=== PATIENT | female | born 1950 | race Caucasian/White ===

== ENCOUNTER 2022-10-24 18:45 | Inpatient (IN) | payer MEDICARE, OTHER ==
[~2022-10-24] VITALS: Ht 167.6 cm; Wt 85.7 kg
--- NOTE | 2022-10-24 20:30 | NUR ---
Dr. Eduardo evaluated patient at bedside. MSE in progress.
[2022-10-24 20:47] LABS: HEMATOCRIT 46.2 % (31.2-41.9); MEAN CORPUSCULAR HEMOGLOBIN 28.9 uug (24.7-32.8); MEAN CORPUSCULAR VOLUME 86.9 fL (75.5-95.3); PLATELET COUNT (AUTO) 404 K/uL (179-408)
[2022-10-24 20:56] LABS: CARBON DIOXIDE 26 mmol/L (21-32); CHLORIDE 102 mmol/L (98-107); CREATININE 0.6 mg/dL (0.6-1.3); GLUCOSE 212 mg/dL (74-106); UREA NITROGEN, BLOOD 16 mg/dL (7-18)
[2022-10-24 20:59] LABS: ETHANOL < 3 MG/DL (0-0)
[2022-10-24 21:01] LABS: ALANINE AMINOTRANSFERASE 27 U/L (14-59); ALKALINE PHOSPHATASE 108 U/L (50-136); ASPARTATE AMINOTRANSFERASE 11 U/L (15-37); BILIRUBIN,DIRECT 0.1 mg/dL (0.0-0.2); BILIRUBIN,TOTAL 0.6 mg/dL (0.2-1.0); TOTAL PROTEIN, SERUM 7.9 g/dL (6.4-8.2)
[2022-10-24 21:04] LABS: ACETAMINOPHEN < 2.0 ug/mL (10-30)
[2022-10-24 21:09] LABS: THYROID STIMULATING HORMONE 3.036 mIU/mL (0.358-3.740)
[2022-10-24 21:43] LABS: *BILIRUBIN,URIN NEGATIVE (NEGATIVE); *BLOOD, URINE NEGATIVE (NEGATIVE); *CLARITY,URINE CLEAR (CLEAR); *COLOR,URINE YELLOW (YELLOW); *KETONES,URINE 1+ (NEGATIVE); *UROBILINOGEN,URINE 0.2 E.U./dl (NORMAL); LEUKOCYTE ESTERASE ,URINE NEGATIVE (NEGATIVE); NITRITE, URINE NEGATIVE (NEGATIVE); PH,URINE 5.5 (5.0-8.0)
[2022-10-24 21:47] LABS: *AMPHETAMINE, URINE NEGATIVE (NEGATIVE); *CANNABINOID, URINE NEGATIVE (NEGATIVE); *COCCAINE, URINE NEGATIVE (NEGATIVE); *PHENCYCLIDINE SCREEN,URINE NEGATIVE (NEGATIVE)
[2022-10-24 21:57] LABS: UGLUCOSE 3+ (NEGATIVE)
--- NOTE | 2022-10-25 01:24 | NUR ---
[place] Phuong [place] [facility] [place]
[2022-10-25] MEDS ORDERED: ACET-73 PO (01:59)
[2022-10-25] MEDS ORDERED: DOCU250C14 PO (02:02)
[2022-10-25] MEDS ORDERED: LORA2TAB95 PO (02:04)
[2022-10-25] MEDS ORDERED: MAGN400O6 PO (02:06)
[2022-10-25] MEDS ORDERED: MAG30ORA GT (02:07)
[2022-10-25] MEDS ORDERED: ACETAMINOPHEN ES 500 MG TABLET- SA PATIENTS-PAIN ONLY PO PRN (02:30)
[2022-10-25] MEDS ORDERED: DOCUSATE SODIUM 250 MG CAPSULE PO PRN (02:30)
[2022-10-25] MEDS ORDERED: MAGNESIUM HYDROXIDE 30 ML LIQUID UDC PO PRN ×2 (02:30→05:45)
[2022-10-25] MEDS ORDERED: MAG HYDROX/AL HYDROX/SIMETH 30 ML LIQUID UDC PO PRN ×2 (02:30→05:45)
--- NOTE | 2022-10-25 04:11 | NUR ---
Patient taken to MHU Room 140-B via wheelchair with personal belongings. Patient in stable condition, no signs of distress. Phuong BRYANT aware of patients arrival.
[2022-10-25] MEDS ORDERED: ARIP15TA3 PO (05:28)
[2022-10-25] MEDS ORDERED: TEMAZEPAM 7.5 MG CAPSULE PO PRN (05:45)
[2022-10-25] MEDS ORDERED: CLONAZEPAM 0.5 MG TABLET PO PRN (05:45)
[2022-10-25] MEDS ORDERED: BLOOD SUGAR DIAGNOSTIC 1 EACH STRIP VI ONE (05:45)
[2022-10-25] MEDS ORDERED: ACETAMINOPHEN 325 MG TABLET PO PRN (05:45)
--- NOTE | 2022-10-25 07:00 | NUR ---
at approx 0400, admitted 72 years old female to [facility] on a 5150 for GD. upon admission pt A/O x 3 she is cooperative with admission process. Face to face assessment was done, patient was advised of her hold and she was given his advisement as well as her booklet of patient's right when in [facility]. we will continue with Q15 min checks
[2022-10-25 07:30] VITALS: BP 122/82
[2022-10-25] MEDS ORDERED: DEXTROSE 50% 50 ML DISP.SYRIN IV PRN (11:45)
--- NOTE | 2022-10-25 14:07 | NUR ---
Patient is DNR but POLST was not eligible, [facility] was called twice today, and document was requested. Anne-Marie [place] [facility] [place][phone]).
--- NOTE | 2022-10-25 14:58 | NUR ---
Received patient awake in the hallway. A/O X 2 to person. Patient is preoccupied, anxious, labile, withdrawn, approachable. Patient ambulates with walker, unsteady gait, continent. Active listening provided. Fall and safety precautions implemented.
--- NOTE | 2022-10-25 16:15 | NUR ---
Cortney from [facility] faxed POLST documentation, but it is still not eligible due to pink color the document presents. POLST was received at U as dark gutierrez and can not be read it.
[2022-10-25] MEDS: BLOOD SUGAR DIAGNOSTIC 1 EACH STRIP VI SCH ×2 (16:30→20:59)
--- NOTE | 2022-10-25 16:41 | NUR ---
Patient refuses Accucheck and states "I want to continue a natural treatment that you don't do anything, just let it be, at God's will".
[2022-10-25] MEDS: OLANZAPINE ZYDIS 5 MG TAB.RAPDIS PO SCH ×2 (20:59→21:00)
[2022-10-25 21:16] VITALS: BP 93/55
--- NOTE | 2022-10-26 02:07 | NUR ---
GPS NOTES: Patient is disorganized, unkempt and delusional. Non-compliant with medications d/t delusional thoughts. Patient not holding any meaningful conversations. Responding to internal stimuli. Denies SI. Educate on the importance of med compliance, still refused. She wanders around the unit. Refused hygiene care. Safety implemented.
[2022-10-26] MEDS: BLOOD SUGAR DIAGNOSTIC 1 EACH STRIP VI SCH ×4 (06:49→20:12)
--- NOTE | 2022-10-26 11:29 | NUR ---
RITESH Initial Discharge Note: Pt currently resides at [facility] located at [address] [place] [address] ([phone]). It is uncertain at this time if pt will return to [facility]. Pt does not appear to have any family contact at this time. RITESH will continue to work with pt, family and MD to ensure a safe and proper discharge plan.
--- NOTE | 2022-10-26 15:40 | NUR ---
Received pt in room sitting quietly on bed. Pt is ambulatory self care, Pt is A/O X2. Pt paces up and down the hallway talking to self. Pt has unkept appearance. Pt refuses nursing care and refuses medications. Pt is Diabetic but refused Accu checks stating "we are not doing that.Continue to monitor for safety, Continue with treatment plan.
[2022-10-26] MEDS: OLANZAPINE ZYDIS 5 MG TAB.RAPDIS PO SCH (20:12)
--- NOTE | 2022-10-26 23:19 | NUR ---
Patient refused blood glucose monitoring and all PO medications. The patient is delusional and believes " God and I are one. God told me not to take your pills and I am not Diabetic. Give me apple juice." Many tries to encourage and educate this patient about diabetes and medication compliance have been unsuccessful so far this shift. Safety Stratiges are in place. Continuing to monitor behavior and compliance.
[2022-10-27] MEDS: BLOOD SUGAR DIAGNOSTIC 1 EACH STRIP VI SCH ×4 (06:32→20:43)
[2022-10-27] MEDS: METFORMIN HCL 500 MG TABLET PO SCH ×2 (13:36→17:37)
[2022-10-27 16:00] VITALS: BP 127/40
--- NOTE | 2022-10-27 16:00 | NUR ---
Patient is confused, disorganized, delusional, hyper sabianism, refusing most of medications. Patient is A/O X 2 to person. Patient requires minimal assistance with ADL, ambulates without assistance, continent. Patient is encourage to verbalize concerns. Fall and safety precautions implemented.
--- NOTE | 2022-10-27 18:37 | NUR ---
Patient blood glucose is 260, but refuses insulin. Patient states "I just take the pills for diabetes".
[2022-10-27] MEDS: OLANZAPINE ZYDIS 5 MG TAB.RAPDIS PO SCH (20:43)
--- NOTE | 2022-10-28 04:56 | NUR ---
GPS NOTES: BS 245, refused insulin. Educated on importance of med compliance, still refused. Patient is disorganized, non compliance with medications. She believes medication will make her blind. She sleeping well during shift.
[2022-10-28] MEDS: BLOOD SUGAR DIAGNOSTIC 1 EACH STRIP VI SCH ×4 (06:34→20:07)
[2022-10-28 07:57] VITALS: BP 153/82
[2022-10-28] MEDS: METFORMIN HCL 500 MG TABLET PO SCH ×2 (08:09→17:19)
[2022-10-28] MEDS: GLIMEPIRIDE 2 MG TABLET PO SCH (08:09)
--- NOTE | 2022-10-28 15:30 | NUR ---
Received Pt in bed Talking to self.pt is A/O X2.Pt is ambulatory. Pt paces up and down the hallway.Pt took her PO medications for Diabetes. Pt did not refuse the dinner Accucheck. Continue to monitor for safety, Continue with treatment plan.
[2022-10-28 16:19] VITALS: BP 106/62
[2022-10-28] MEDS: INSULIN REGULAR, HUMAN 300 UNIT/3 ML VIAL SQ PRN (17:15)
[2022-10-28 20:00] VITALS: BP 135/61
[2022-10-28] MEDS: OLANZAPINE ZYDIS 5 MG TAB.RAPDIS PO SCH (20:07)
--- NOTE | 2022-10-29 06:49 | NUR ---
GPS NOTES: Remains non-compliant with medications d/t delusions of going blind. Educated pt. however not understanding of the concepts. She continues to respond to internal stimuli, she is hyper taoist, believing Robert is talking to her. She slept most of the shift. No distress noted. safety strategies are in placed.
[2022-10-29] MEDS: BLOOD SUGAR DIAGNOSTIC 1 EACH STRIP VI SCH ×4 (06:53→20:19)
[2022-10-29 08:13] VITALS: BP 152/57
[2022-10-29] MEDS: METFORMIN HCL 500 MG TABLET PO SCH ×2 (08:33→18:00)
[2022-10-29] MEDS: GLIMEPIRIDE 2 MG TABLET PO SCH (08:33)
[2022-10-29 16:24] VITALS: BP 138/63
[2022-10-29] MEDS: INSULIN REGULAR, HUMAN 300 UNIT/3 ML VIAL SQ PRN ×2 (16:38→20:58)
--- NOTE | 2022-10-29 18:08 | NUR ---
Received Patient is confused, disorganized, delusional, refusing most of medications waiting for Riese hearing . Patient is A/O X 2 to person. Patient requires minimal assistance with ADL, ambulates without assistance, continent. glucose monitoring with sliding scale coverage. Fall and safety precautions implemented.
[2022-10-29 20:07] VITALS: BP 102/56
[2022-10-29] MEDS: OLANZAPINE ZYDIS 5 MG TAB.RAPDIS PO SCH (20:18)
[2022-10-30] MEDS: BLOOD SUGAR DIAGNOSTIC 1 EACH STRIP VI SCH ×4 (06:42→20:26)
[2022-10-30 07:50] VITALS: BP 160/81
[2022-10-30] MEDS: GLIMEPIRIDE 2 MG TABLET PO SCH (08:43)
[2022-10-30] MEDS: METFORMIN HCL 500 MG TABLET PO SCH ×2 (08:44→16:34)
[2022-10-30] MEDS: INSULIN REGULAR, HUMAN 300 UNIT/3 ML VIAL SQ PRN (08:58)
[2022-10-30 16:38] VITALS: BP 102/44
[2022-10-30 19:52] VITALS: BP 126/50
--- NOTE | 2022-10-31 06:36 | NUR ---
Patient still refuses to receive insulin coverage per sliding scale, even with repeated education. States she "only will take oral medication" for her elevated blood sugar findings.
[2022-10-31] MEDS: BLOOD SUGAR DIAGNOSTIC 1 EACH STRIP VI SCH ×4 (07:30→20:33)
--- NOTE | 2022-10-31 08:00 | NUR ---
Pt received from outgoing nurse. PT AAOX2-3. All meds given. No signs of shortness of breath noted. Pt denies any pain. PT ambulates in room. Will continue to monitor
[2022-10-31 08:06] VITALS: BP 145/81
[2022-10-31] MEDS: GLIMEPIRIDE 2 MG TABLET PO SCH (08:29)
[2022-10-31] MEDS: METFORMIN HCL 500 MG TABLET PO SCH ×2 (08:29→17:04)
[2022-10-31] MEDS: OLANZAPINE ZYDIS 5 MG TAB.RAPDIS PO SCH ×2 (08:29→17:05)
[2022-10-31 16:09] VITALS: BP 128/89
--- NOTE | 2022-10-31 16:39 | NUR ---
14 days PC hearing done ,held for Gravely disabled.
[2022-10-31 20:00] VITALS: BP 132/82
--- NOTE | 2022-11-01 03:37 | NUR ---
Pt still refusing to receive insulin injections per sliding scale. Still paranoid and suspicious at times. Compliant with PO meds. Interacts when spoken to accordingly. Will continue to monitor.
[2022-11-01] MEDS: BLOOD SUGAR DIAGNOSTIC 1 EACH STRIP VI SCH ×2 (06:42→12:07)
[2022-11-01] MEDS: INSULIN REGULAR, HUMAN 300 UNIT/3 ML VIAL SQ PRN ×2 (07:33→12:11)
[2022-11-01 07:51] VITALS: BP 137/62
[2022-11-01] MEDS: METFORMIN HCL 500 MG TABLET PO SCH (08:18)
[2022-11-01] MEDS: OLANZAPINE ZYDIS 5 MG TAB.RAPDIS PO SCH (08:19)
[2022-11-01] MEDS: GLIMEPIRIDE 2 MG TABLET PO SCH (08:24)
[2022-11-01] MEDS ORDERED: DOCUSATE SODIUM 250 MG CAPSULE PO PRN (10:32)
--- NOTE | 2022-11-01 12:18 | NUR ---
RITESH Discharge Note: Pt will be discharged to [facility] located at [address] [place] [phone] ([phone]) via ambulance transportation at 2PM. RITESH spoke with [place] sun [phone] at the facility who states they are ready to accept the patient today. Pt is aware and agreeable with discharge plan. Pt does not have any family contact. Pt is alert and oriented x3, is unable to plan for self-care at this time. However, pt is willing to accept care at SNF. Pt denies any suicidal or homicidal ideation. Pt will follow-up at the facility with Psychiatrist, Dr. Smith and Produce Inspector, Dr. Benavides. Pt presents with calm mood and congruent affect. PHARMACY: [facility] ([phone]) [address] [place] [address].
--- NOTE | 2022-11-01 14:00 | NUR ---
Received Pt in room sleeping.pt is A/O X2.Pt is ambulatory. Pt takes PO medication but refuses Insulin. Pt is depress and confused at times.Pt needs minimal help With ADLs. continue to monitor for safety , continue with care plan.
--- NOTE | 2022-11-01 14:35 | NUR ---
Discharge pt to [facility]. Pt left on [facility] accompanied by EMT.Denies pain or discomfort. Pt is able to make all needs known. Denies SI/HI no behavioral issues noted.Pt discharged with all belongings and medications.No acute distress.
== END 2022-11-01 14:30 | DRG 885 ==
LOC: ER 18:52 → GPS 10-25 01:19
PROVIDERS: ADMIT Psychiatry & Neurology Psychiatry; ATTEND Nurse Practitioner Family
DX: F29 Unspecified psychosis not due to a substance or known physiological condition (principal); E11.65 Type 2 diabetes mellitus with hyperglycemia; F20.9 Schizophrenia, unspecified; Z91.14 Patient's other noncompliance with medication regimen; I10 Essential (primary) hypertension; H54.7 Unspecified visual loss; Z87.891 Personal history of nicotine dependence; E11.51 Type 2 diabetes mellitus with diabetic peripheral angiopathy without gangrene; E78.5 Hyperlipidemia, unspecified; G20 Parkinson's disease; Z20.822 Contact with and (suspected) exposure to COVID-19; Z73.6 Limitation of activities due to disability; F32.A Depression, unspecified; Z79.4 Long term (current) use of insulin; Z79.84 Long term (current) use of oral hypoglycemic drugs
CPT/HCPCS: 36415; 84443; 85025; 93005; A4663; G0480; J1815

== ENCOUNTER 2022-12-25 22:57 | Inpatient (IN) | payer MEDICARE, OTHER ==
[~2022-12-25] VITALS: Ht 162.6 cm; Wt 90.7 kg
[~2022-12-25 22:57] MED LIST: ACET-73 PO; DOCU250C14 PO; MAG30ORA GT; MAGN400O6 PO
[2022-12-25 23:25] LABS: HEMATOCRIT 40.6 % (31.2-41.9); MEAN CORPUSCULAR HEMOGLOBIN 29.4 uug (24.7-32.8); MEAN CORPUSCULAR VOLUME 87.2 fL (75.5-95.3); PLATELET COUNT (AUTO) 370 K/uL (179-408)
--- NOTE | 2022-12-25 23:29 | NUR ---
Patient assigned to [address] [place] [address]
[2022-12-25 23:35] LABS: CARBON DIOXIDE 27 mmol/L (21-32); CHLORIDE 102 mmol/L (98-107); CREATININE 0.7 mg/dL (0.6-1.3); POTASSIUM 4.1 mmol/L (3.5-5.1); UREA NITROGEN, BLOOD 23 mg/dL (7-18)
--- NOTE | 2022-12-25 23:39 | NUR ---
BIB AMBULANCE, PLACED INTO ROOM #4-A, INFORMED OF PLAN OF CARE, AWAITING MD EXAM. NO S/S OF ANY DISTRESS NOTED, COVID AND MRSA SWAB DONE AND SENT TO LAB. SIDE RAILS UP WILL CONTINUE TO MONITOR.
[2022-12-25 23:40] LABS: GLUCOSE 340 mg/dL (74-106)
[2022-12-25 23:41] LABS: ALANINE AMINOTRANSFERASE 27 U/L (14-59); ALKALINE PHOSPHATASE 120 U/L (50-136); ASPARTATE AMINOTRANSFERASE < 5 U/L (15-37); BILIRUBIN,DIRECT 0.1 mg/dL (0.0-0.2); BILIRUBIN,TOTAL 0.3 mg/dL (0.2-1.0); TOTAL PROTEIN, SERUM 7.4 g/dL (6.4-8.2)
[2022-12-25 23:43] LABS: ACETAMINOPHEN < 2.0 ug/mL (10-30)
[2022-12-25 23:46] LABS: ETHANOL < 3 MG/DL (0-0)
[2022-12-25 23:48] LABS: THYROID STIMULATING HORMONE 4.364 mIU/mL (0.358-3.740)
--- NOTE | 2022-12-25 23:57 | NUR ---
Patient has been medically cleared by Dr Eduardo
[2022-12-26] MEDS ORDERED: NA P133E RC (00:21)
[2022-12-26] MEDS ORDERED: BISA10SU61 RC (00:21)
[2022-12-26] MEDS ORDERED: METF-442 PO (00:21)
[2022-12-26] MEDS ORDERED: OLAN5TAB70 PO (00:21)
[2022-12-26] MEDS ORDERED: GLIM2TAB31 PO (00:21)
--- NOTE | 2022-12-26 00:48 | NUR ---
LATE ENTRY: Report was called to Sacha @0011, awaiting COVID results. Patient is rest without any c/o at this time.
--- NOTE | 2022-12-26 00:49 | NUR ---
Patient continues to rest no s/s of any distress or discomfort, still waiting for COVID results.
[2022-12-26 02:01] VITALS: BP 175/67
[2022-12-26] MEDS ORDERED: MAGNESIUM HYDROXIDE 30 ML LIQUID UDC PO PRN (03:00)
[2022-12-26] MEDS ORDERED: BLOOD SUGAR DIAGNOSTIC 1 EACH STRIP VI ONE (03:00)
[2022-12-26] MEDS ORDERED: CLONAZEPAM 0.5 MG TABLET PO PRN (03:00)
[2022-12-26] MEDS ORDERED: TEMAZEPAM 7.5 MG CAPSULE PO PRN (03:00)
[2022-12-26] MEDS ORDERED: MAG HYDROX/AL HYDROX/SIMETH 30 ML LIQUID UDC PO PRN (03:00)
[2022-12-26] MEDS ORDERED: ACETAMINOPHEN 325 MG TABLET PO PRN (03:00)
--- NOTE | 2022-12-26 05:22 | NUR ---
Nursing Admission Note: Received 72 y/o women on a 5150 hold, brought in via ER staff on . Pt resides at [facility] in [place], [place]. Report states patient refused to receive her medications and care for 3+ days. She became increasingly difficult to care for, and started to threaten staff nurses and other residents of the facility. She also started throwing things at them. Upon F2F assessment, pt was AOx3, calm, compliant, and well kept. She is self-ambulatory/self-care. Patient was given her advisement, patient's rights, and placed into her Patient's Handbook. She denied being aggressive toward her staff at the [facility]. She stated that they were forcing her to do things such as bathing, BS checks, and taking meds. Here in MHU, she will be under the care of Dr. Joaquin, and Dr. Mao.
[2022-12-26 08:00] VITALS: BP 151/76
--- NOTE | 2022-12-26 10:10 | NUR ---
Initial Discharge Note: Patient currently resides at [address] and patient is open to going back at discharge. SW will continue to work with patient and MD to ensure a safe and proper discharge plan.
--- NOTE | 2022-12-26 10:23 | NUR ---
Firearms Report: Insulation Cupola Charger completed and submitted a DOJ firearms report for 5150 grave disability and danger to others certifications. A copy of report has been placed in patient chart.
--- NOTE | 2022-12-26 14:35 | NUR ---
GPS: Nursing Notes: Destructive Behavior To Others: Patient is awake and responding to her name, cooperative with nursing care, isolative and withdrawn in her room. no interactions with peers, A/Ox3, denies SI/HI, unable to formulate a viable plan for self care, stated "I was not taking medication because my vision was getting blurred.." encourage to participate in therapeutic groups, but refusing to participate, continue to monitor for safety, continue with treatment plan.
[2022-12-26 16:00] VITALS: BP 178/85
[2022-12-26 19:52] VITALS: BP 180/90
--- NOTE | 2022-12-27 03:03 | NUR ---
Patient is AOx3. Calm, compliant, yet with withdrawn and isolated. Pt stayed in her room intermittently sitting in her chair. Pt still refused to take any prn medications this shift. She is self-ambulatory and self-care. Ate 100% of snacks given this shift. This nurse reminded of the importance of taking medications, especially to help manage her daily elevated BP level. Also re-educated of the importance of not overeating and to monitor what, when, and how much food/drinks she is consuming daily to help manage her daily elevated BS level. Pt verbalized understanding. Pt denied SI/HI. Contracted for safety.
[2022-12-27 07:30] VITALS: BP 145/83
[2022-12-27 08:27] LABS: BILIRUBIN,TOTAL 0.4 mg/dL (0.2-1.0); CREATININE 0.7 mg/dL (0.6-1.3); POTASSIUM 4.3 mmol/L (3.5-5.1)
[2022-12-27] MEDS ORDERED: MAGNESIUM HYDROXIDE 30 ML LIQUID UDC PO PRN (10:15)
[2022-12-27] MEDS ORDERED: DOCUSATE SODIUM 250 MG CAPSULE PO PRN (10:15)
[2022-12-27] MEDS ORDERED: FLEET ENEMA 133 ML BOTTLE RC PRN (10:15)
[2022-12-27] MEDS ORDERED: ACETAMINOPHEN ES 500 MG TABLET- SA PATIENTS-PAIN ONLY PO PRN (10:15)
[2022-12-27] MEDS ORDERED: BISACODYL 10 MG SUPP.RECT RC PRN (10:15)
[2022-12-27] MEDS: OLANZAPINE ZYDIS 5 MG TAB.RAPDIS PO SCH ×2 (10:31→17:40)
[2022-12-27] MEDS: GLIMEPIRIDE 2 MG TABLET PO SCH (11:07)
[2022-12-27] MEDS ORDERED: DEXTROSE 50% 50 ML DISP.SYRIN IV PRN (11:30)
[2022-12-27] MEDS: AMLODIPINE 10 MG TABLET PO SCH (12:01)
[2022-12-27] MEDS: BLOOD SUGAR DIAGNOSTIC 1 EACH STRIP VI SCH ×3 (12:11→20:10)
[2022-12-27] MEDS: INSULIN REGULAR, HUMAN 300 UNIT/3 ML VIAL SQ PRN ×2 (12:26→20:11)
[2022-12-27] MEDS: METFORMIN HCL 500 MG TABLET PO SCH (17:40)
--- NOTE | 2022-12-27 19:01 | NUR ---
Pt is depressed , Isolative, withdrawn and selective with medications. she will take her PO medications but refuse her Regular insulin and at times her blood sugar check stating "i will take only pills no needles" encourage pt to ventilate feelings and to participate in group activities. Reassurance provided .continue to monitor for safety, continue with treatment plan.
[2022-12-27 20:00] VITALS: BP 112/52
[2022-12-27] MEDS: ATORVASTATIN 10 MG TABLET PO SCH (20:22)
[2022-12-28] MEDS: BLOOD SUGAR DIAGNOSTIC 1 EACH STRIP VI SCH ×4 (06:20→20:24)
--- NOTE | 2022-12-28 06:52 | NUR ---
GPS: Pt.slept 9 hrs.last night. B.S. at this time is 279mg/dl. Encouraged to allow staff to administer insulin on her per sliding scale but pt.said "No".Stated " God said " No to needles". Re-directed but continues to insist on what she believes in. Endorsed to incoming nurse. Safety emphasized.
[2022-12-28 07:30] VITALS: BP 163/72
[2022-12-28] MEDS: AMLODIPINE 10 MG TABLET PO SCH (09:34)
[2022-12-28] MEDS: METFORMIN HCL 500 MG TABLET PO SCH ×2 (09:34→16:41)
[2022-12-28] MEDS: GLIMEPIRIDE 2 MG TABLET PO SCH (09:35)
[2022-12-28] MEDS: OLANZAPINE ZYDIS 5 MG TAB.RAPDIS PO SCH ×2 (09:35→16:43)
--- NOTE | 2022-12-28 14:20 | NUR ---
Gps/Base Engineer- Had been in and out of her room, mostly in her bed. Had been compliant with her routine meds.daquan noted, claimed she does not needs to drink water ever from [place]/ claimed instructions received from Lucio , and she's just following .
--- NOTE | 2022-12-28 17:37 | NUR ---
Gps/Nursery Laborer- Noted elevated blood sugars, patient refusing sliding scale coverage .
[2022-12-28 20:00] VITALS: BP 131/68
[2022-12-28] MEDS: ATORVASTATIN 10 MG TABLET PO SCH (20:22)
[2022-12-29] MEDS: BLOOD SUGAR DIAGNOSTIC 1 EACH STRIP VI SCH ×4 (06:29→20:33)
[2022-12-29 07:51] VITALS: BP 129/58
[2022-12-29] MEDS: AMLODIPINE 10 MG TABLET PO SCH (08:53)
[2022-12-29] MEDS: OLANZAPINE ZYDIS 5 MG TAB.RAPDIS PO SCH ×2 (08:53→17:55)
[2022-12-29] MEDS: METFORMIN HCL 500 MG TABLET PO SCH (08:54)
[2022-12-29] MEDS: GLIMEPIRIDE 2 MG TABLET PO SCH (08:56)
--- NOTE | 2022-12-29 12:50 | NUR ---
RITESH PC Hearing: Patient had 5250 probable cause hearing today and it was upheld for grave disability.
--- NOTE | 2022-12-29 13:00 | NUR ---
Gps/Seasonal Warehouse Associate- Dr De La Rosa was informed of elevated blood sugars , and patient refusal of insulin coverage orders received.
--- NOTE | 2022-12-29 15:52 | NUR ---
Gps/Audio/Video Engineer- Stayed in the activity room during her meals , attends and participates in her group activity. Compliant with her medications but refused to drink water , claimed Lucio told her not to drink [place]. water, she's following the rules of Lucio per pt.
[2022-12-29 16:02] VITALS: BP 120/49
[2022-12-29] MEDS: METFORMIN HCL 850 MG TABLET PO SCH (18:00)
[2022-12-29] MEDS ORDERED: METFORMIN HCL 500 MG TABLET PO SCH (18:00)
[2022-12-29] MEDS: ATORVASTATIN 10 MG TABLET PO SCH (20:31)
[2022-12-30] MEDS: BLOOD SUGAR DIAGNOSTIC 1 EACH STRIP VI SCH ×4 (06:40→21:00)
[2022-12-30] MEDS: METFORMIN HCL 850 MG TABLET PO SCH ×3 (08:27→17:47)
[2022-12-30] MEDS: OLANZAPINE ZYDIS 5 MG TAB.RAPDIS PO SCH ×2 (08:27→17:47)
[2022-12-30] MEDS: GLIMEPIRIDE 2 MG TABLET PO SCH (08:28)
[2022-12-30] MEDS: AMLODIPINE 10 MG TABLET PO SCH (08:35)
--- NOTE | 2022-12-30 11:58 | NUR ---
Gps/Television Anchor- Patient refusing to have her blood sugar check, claimed Lucio said " no more blood sugar ". Patient agreed will drink her bottled water 2x a day. Denies hearing voices, but observed patient making gestures , responding to internal stimuli.. Attends group activity , smiling ,hugging self , while watching TV
--- NOTE | 2022-12-30 13:18 | NUR ---
Gps/Supervisor Stave Finishing- [facility] here to transport patient to [facility], no sign of any distress, denies any discomfort All belonings given back to patient, daughter was called, Charge Nurse Amanda dye message informed of the coal picker time. Addendum: 12/30/22 at 1358 by KSENIA MYERS LVN Charted on a wrong patient
--- NOTE | 2022-12-30 13:58 | NUR ---
Gps/Oracle Consultant- Stayed in the activity room durings her meals. Prompted to take routine meds, hesitancy noted, was encouraged to drink bottled water , patient promised will try to cooperate. .Patient remains to refused accu-check today , will attempt at a later time. Dr De La Rosa aware of the elevated blood glucose for the last few days, as well as the continued refusal of the insulin sliding scales
[2022-12-30] MEDS: ATORVASTATIN 10 MG TABLET PO SCH (20:49)
--- NOTE | 2022-12-31 06:24 | NUR ---
Pt is paranoid , Guarded, has HI/AV, Unkept dishevel appearance, Pt refuses shower. Pt is Withdrawn and selective with medications. Pt refuses blood sugar checks stating " I told you that the deal was i only take pills no needles no blood" "Lucio told me no needles" "[place] going to [facility]". Reassurance provided. Continue to monitor for safety, continue with treatment plan.
[2022-12-31] MEDS: BLOOD SUGAR DIAGNOSTIC 1 EACH STRIP VI SCH ×4 (07:01→21:00)
[2022-12-31] MEDS: METFORMIN HCL 850 MG TABLET PO SCH ×3 (08:21→16:33)
[2022-12-31] MEDS: OLANZAPINE ZYDIS 5 MG TAB.RAPDIS PO SCH ×3 (08:21→16:32)
[2022-12-31] MEDS: GLIMEPIRIDE 2 MG TABLET PO SCH (08:25)
[2022-12-31] MEDS: AMLODIPINE 10 MG TABLET PO SCH (08:26)
[2022-12-31] MEDS: NUTRISOURCE FIBER 4 GM PACKET PO SCH ×2 (12:15→16:33)
--- NOTE | 2022-12-31 12:18 | NUR ---
Gps/Crystal Finisher- Responding to internal stimuli, stated "" i'm listening, Lucio said no water, and you need to get out , He will push you" Noted patient gets irritable when questioned or asked if she is hearing voices. observed talking to herself
--- NOTE | 2022-12-31 16:39 | NUR ---
Gps/Cinder Pit Crane Operator- Refusing blood sugar checks - reoffered each time when due, patient got upset , reiterated she does not need to have BS check ( per Lucio ) as well as no [place] water. Agreed to drink bottled water to be offered inhront of her yesterday, claimed today she changed her mind as Lucio directed her per pt. .Had been compliant with routine meds taken with juices only.Informed juice can make her blood sugar up, pt does not want to hear
[2022-12-31] MEDS: ATORVASTATIN 10 MG TABLET PO SCH (21:49)
--- NOTE | 2023-01-01 05:17 | NUR ---
Pt still feels paranoid r/t medication passing. Still refuses to take her 2100 scheduled meds, as well as any prn meds, even after repeated education. Denies SI/HI. Contracted for safety. Still refuses to have BS checked per schedule, q feng.
[2023-01-01] MEDS: BLOOD SUGAR DIAGNOSTIC 1 EACH STRIP VI SCH ×4 (07:29→20:35)
[2023-01-01] MEDS: AMLODIPINE 10 MG TABLET PO SCH (09:00)
[2023-01-01] MEDS: NUTRISOURCE FIBER 4 GM PACKET PO SCH ×3 (09:00→16:35)
[2023-01-01] MEDS: OLANZAPINE ZYDIS 5 MG TAB.RAPDIS PO SCH ×3 (09:33→16:35)
[2023-01-01] MEDS: METFORMIN HCL 850 MG TABLET PO SCH ×3 (09:33→16:35)
[2023-01-01] MEDS: GLIMEPIRIDE 2 MG TABLET PO SCH (09:34)
--- NOTE | 2023-01-01 13:30 | NUR ---
GPS: Nursing Notes: Destructive Behavior To Others: Patient is awake and responding to her name, isolative and withdrawn in her room, needs prompting for minimal participation in therapeutic groups, unable to formulate a viable plan for self care, refusing her accu-checks, stating "I said no...No.." and walking away from staff, no aggressive behavior noted, paranoid behavior, resistant with nursing care, continue to monitor for safety, continue with treatment plan.
[2023-01-01] MEDS: ATORVASTATIN 10 MG TABLET PO SCH (20:46)
[2023-01-02] MEDS: BLOOD SUGAR DIAGNOSTIC 1 EACH STRIP VI SCH ×4 (06:09→20:02)
--- NOTE | 2023-01-02 06:10 | NUR ---
GPS: Pt.slept 6 hrs.last night. Remains paranoid,withdrawn and does not interact with other pt's. Continues to refuse blood sugar checks stating that "Lucio told me no needles". Refused to be re-directed and to listen to health teachings. Insists on what she believes in. Safe environment provided. Will continue to monitor.
[2023-01-02] MEDS: OLANZAPINE ZYDIS 5 MG TAB.RAPDIS PO SCH ×3 (08:36→17:05)
[2023-01-02] MEDS: METFORMIN HCL 850 MG TABLET PO SCH ×3 (08:36→17:04)
[2023-01-02] MEDS: NUTRISOURCE FIBER 4 GM PACKET PO SCH ×3 (08:37→16:53)
[2023-01-02] MEDS: GLIMEPIRIDE 2 MG TABLET PO SCH (08:37)
[2023-01-02] MEDS: AMLODIPINE 10 MG TABLET PO SCH (08:37)
--- NOTE | 2023-01-02 13:12 | NUR ---
GPS: Nursing Notes: Destructive Behavior To Others: Patient is awake and responding to her name, isolative and withdrawn in her room, needs prompting to participate in therapeutic groups, refusing to take a shower, refusing Accu-checks, stated "No.. No, I am afraid of needles..", redirected during shift, no interactions with peers, unable to formulate a viable plan for self care, no aggressive behavior noted, continue to monitor for safety, continue with treatment plan.
[2023-01-02] MEDS: ATORVASTATIN 10 MG TABLET PO SCH (20:02)
[2023-01-03] MEDS: BLOOD SUGAR DIAGNOSTIC 1 EACH STRIP VI SCH ×4 (06:35→20:11)
--- NOTE | 2023-01-03 06:35 | NUR ---
GPS: Continues to refuse blood sugar checks despite explanation of importance. Tends to be withdrawn and does not interact with other patients. Slept 6 hrs.last night. Safe environment provided. Re-directed prn. No aggressive behavior noted.
[2023-01-03] MEDS: GLIMEPIRIDE 2 MG TABLET PO SCH (08:20)
[2023-01-03] MEDS: METFORMIN HCL 850 MG TABLET PO SCH ×3 (08:20→17:21)
[2023-01-03] MEDS: OLANZAPINE ZYDIS 5 MG TAB.RAPDIS PO SCH ×3 (08:21→17:21)
[2023-01-03] MEDS: AMLODIPINE 10 MG TABLET PO SCH (08:23)
[2023-01-03] MEDS: NUTRISOURCE FIBER 4 GM PACKET PO SCH ×3 (08:23→17:22)
--- NOTE | 2023-01-03 18:55 | NUR ---
Pt is Isolative, Guarded, Suspicious, Paranoid, Withdrawn. pt is selective with medication.Pt is still refusing blood pressure checks,blood sugar checks and refuses to take regular insulin. Encourage pt shower but refuse and stated "Lucio told me i do not need to shower and has an unkept and disheveled appearance. Education provided on the importance of being compliant with medication and with nursing care. Continue to monitor for safety. Continue with treatment plan.
[2023-01-03] MEDS: ATORVASTATIN 10 MG TABLET PO SCH (20:11)
[2023-01-04] MEDS: BLOOD SUGAR DIAGNOSTIC 1 EACH STRIP VI SCH ×4 (06:27→20:48)
[2023-01-04] MEDS: GLIMEPIRIDE 2 MG TABLET PO SCH (08:54)
[2023-01-04] MEDS: OLANZAPINE ZYDIS 5 MG TAB.RAPDIS PO SCH ×3 (08:54→17:21)
[2023-01-04] MEDS: METFORMIN HCL 850 MG TABLET PO SCH ×3 (08:54→17:22)
[2023-01-04] MEDS: AMLODIPINE 10 MG TABLET PO SCH (08:55)
[2023-01-04] MEDS: NUTRISOURCE FIBER 4 GM PACKET PO SCH ×3 (09:45→17:23)
--- NOTE | 2023-01-04 18:38 | NUR ---
Pt is Guarded, Suspicious, Paranoid,Withdrawn.Pt stated that "Robert Valdes told her to take her medications standing up".Pt is still selective with medication and stated that "Robert Valdes told her no needles and no blood and only take pills". Education provided on the importance of being compliant with medication and nursing care. Continue to monitor for safety.Continue with treatment plan.
[2023-01-04] MEDS: ATORVASTATIN 10 MG TABLET PO SCH (20:48)
--- NOTE | 2023-01-05 04:58 | NUR ---
GPS: Patient received sleeping, easily arousable and mumbles when being spoken to, A&0x1, she is isolative in her room, doesn't interact, sleeping mostly this shift. She refused accucheck, risks and benefits explained x3 still refused. Patient delusional that GOD is not allowing her to have needles in her body. Patient is avoidant when being educated. All safety measures left in placed.
[2023-01-05] MEDS: BLOOD SUGAR DIAGNOSTIC 1 EACH STRIP VI SCH ×4 (07:30→20:26)
[2023-01-05] MEDS: AMLODIPINE 10 MG TABLET PO SCH (09:00)
[2023-01-05] MEDS: GLIMEPIRIDE 2 MG TABLET PO SCH (09:14)
[2023-01-05] MEDS: METFORMIN HCL 850 MG TABLET PO SCH ×3 (09:15→17:10)
[2023-01-05] MEDS: NUTRISOURCE FIBER 4 GM PACKET PO SCH ×3 (09:16→17:11)
[2023-01-05] MEDS: OLANZAPINE ZYDIS 5 MG TAB.RAPDIS PO SCH ×3 (09:17→17:10)
--- NOTE | 2023-01-05 14:29 | NUR ---
Patient is A/O X 2 to person, place. Patient is compliant with medications, approachable, refusing accuchecks and vital signs, following directions, disheveled appearance. Requires minimal assistance with ADL. Emotional support provided. Fall and safety precautions implemented.
[2023-01-05] MEDS: ATORVASTATIN 10 MG TABLET PO SCH (20:10)
--- NOTE | 2023-01-05 20:27 | NUR ---
Patient refused vital signs to be taken, refused accu check also.
[2023-01-05] MEDS: ATORVASTATIN 20 MG TABLET PO SCH (21:00)
--- NOTE | 2023-01-06 04:45 | NUR ---
Received in bed asleep, patient stayed in her room most of the shift, refused vital signs taken, but cooperative with medications. Patient isolative, does not interact with other patient, cont to monitor.
[2023-01-06] MEDS: BLOOD SUGAR DIAGNOSTIC 1 EACH STRIP VI SCH ×4 (06:28→20:31)
[2023-01-06] MEDS: NUTRISOURCE FIBER 4 GM PACKET PO SCH ×3 (09:00→17:04)
[2023-01-06] MEDS: AMLODIPINE 10 MG TABLET PO SCH (09:00)
[2023-01-06] MEDS: METFORMIN HCL 850 MG TABLET PO SCH ×3 (09:23→17:04)
[2023-01-06] MEDS: OLANZAPINE ZYDIS 5 MG TAB.RAPDIS PO SCH ×2 (09:23→21:00)
[2023-01-06] MEDS: GLIMEPIRIDE 2 MG TABLET PO SCH ×2 (09:26→17:04)
--- NOTE | 2023-01-06 09:38 | NUR ---
Unable to administer scheduled Amplodipine 10mg PO as ordered due to pt's refusal for v/s checks. Pt is asymptomatic at this time.
--- NOTE | 2023-01-06 10:25 | NUR ---
Pt recieved sitting in day room watching TV. Pt compliant with all AM scheduled medications at this time. Unable to administer BP medication due to V/S check refusal. Pt has minimal self disclosure, and appears internally preoccupied. No aggressive or combative behavior at this time. In no acute distress.
[2023-01-06] MEDS: ATORVASTATIN 20 MG TABLET PO SCH (20:30)
[2023-01-07] MEDS: BLOOD SUGAR DIAGNOSTIC 1 EACH STRIP VI SCH ×4 (06:55→20:46)
[2023-01-07] MEDS: OLANZAPINE ZYDIS 5 MG TAB.RAPDIS PO SCH ×2 (08:31→16:21)
[2023-01-07] MEDS: AMLODIPINE 10 MG TABLET PO SCH (08:32)
[2023-01-07] MEDS: METFORMIN HCL 850 MG TABLET PO SCH ×3 (08:34→16:21)
[2023-01-07] MEDS: GLIMEPIRIDE 2 MG TABLET PO SCH ×2 (08:35→16:22)
[2023-01-07] MEDS: NUTRISOURCE FIBER 4 GM PACKET PO SCH ×3 (08:36→16:22)
--- NOTE | 2023-01-07 15:34 | NUR ---
Patient is awake and responding to her name, isolative and withdrawn in her room, needs prompting for minimal participation in therapeutic groups,patient has been refused vital sign and acc-check taken,but compliant with all medication.pleasant upon approach .
[2023-01-07] MEDS: ATORVASTATIN 20 MG TABLET PO SCH (20:37)
[2023-01-07] MEDS ORDERED: INSULIN GLARGINE,HUM 300 UNITS/3 ML CARTRIDGE SQ SCH (21:00)
--- NOTE | 2023-01-08 06:24 | NUR ---
Pt is still isolative and withdrawn. Unkept appearance refusing shower. Pt is selective with medications. Pt is still refusing regular insulin, blood sugar checks and refusing blood pressure checks . Reassurance provided and educated on the importance of being compliant with medications and nursing care. Continue to monitor for safety,continue with treatment plan.
[2023-01-08] MEDS: BLOOD SUGAR DIAGNOSTIC 1 EACH STRIP VI SCH (06:53)
[2023-01-08] MEDS: METFORMIN HCL 850 MG TABLET PO SCH (08:29)
[2023-01-08] MEDS: OLANZAPINE ZYDIS 5 MG TAB.RAPDIS PO SCH (08:29)
[2023-01-08] MEDS: GLIMEPIRIDE 2 MG TABLET PO SCH (08:30)
[2023-01-08] MEDS: NUTRISOURCE FIBER 4 GM PACKET PO SCH (08:32)
[2023-01-08] MEDS: AMLODIPINE 10 MG TABLET PO SCH (08:32)
--- NOTE | 2023-01-08 09:47 | NUR ---
RITESH Discharge Note: Pt will be discharged to [facility] located at [address] [place] [phone] ([phone]) via Ambulance transportation at 11AM. RITESH spoke with [place] sun [phone] at the facility who states they are ready to accept the patient today. Pt is aware and agreeable with discharge plan. Pt does not have any family contact. Pt is alert and oriented x2, is unable to plan for self-care at this time. However, pt is willing to accept care at SNF. Pt denies any suicidal or homicidal ideation. Pt will follow-up at the facility with Psychiatrist, Dr. Joaquin ([phone]) and Guest Experience Manager, Dr. Benavides. Pt presents with calm mood and congruent affect. PHARMACY: [facility] ([phone] [address] [place] [address].
--- NOTE | 2023-01-08 11:15 | NUR ---
Discharged patient to [facility] via ambulance at 11 am, patient is alert and oriented x3,compliant with all medication denies any pain or discomfort at all time.all personal belonging returned to patient , report calling to facility spoke with Daylin BRYANT
== END 2023-01-08 11:15 | DRG 885 ==
LOC: ER 23:01 → GPS 23:55 → UNDOADMIN 23:55 → GPS 12-26 05:22
PROVIDERS: ADMIT Psychiatry & Neurology Psychiatry
DX: F20.0 Paranoid schizophrenia (principal); E11.65 Type 2 diabetes mellitus with hyperglycemia; I10 Essential (primary) hypertension; E11.51 Type 2 diabetes mellitus with diabetic peripheral angiopathy without gangrene; G20 Parkinson's disease; E78.5 Hyperlipidemia, unspecified; E66.9 Obesity, unspecified; Z68.34 Body mass index [BMI] 34.0-34.9, adult; Z79.84 Long term (current) use of oral hypoglycemic drugs; Z91.14 Patient's other noncompliance with medication regimen; F32.A Depression, unspecified; E03.8 Other specified hypothyroidism; F41.9 Anxiety disorder, unspecified; Z66 Do not resuscitate
CPT/HCPCS: 36415; 84443; 84481; 85025; A4663; G0480; J1815